=== PATIENT | male | born 1955 | race Caucasian/White ===

== ENCOUNTER 2020-05-19 23:43 | Emergency (ER) | payer MEDICARE, OTHER, SELFPAY ==
[~2020-05-19] VITALS: Ht 175.3 cm; Wt 83.7 kg
[2020-05-20 00:52] LABS: BASO % 0.3 % (0.0-1.0); EOS # 0.1 10^3/uL (0.0-0.5); EOS % 0.9 % (0.0-3.0); HEMOGLOBIN 14.3 g/dl (13.5-17.5); LYMPH % 12.8 % (24.0-44.0); MEAN CORPUSCULAR HEMOGLOBIN 32.4 pg (27.0-33.0); MEAN CORPUSCULAR HGB CONC 34.9 g/dl (32.0-36.5); MONO # 0.7 10^3/uL (0.0-0.8); MONO % 8.9 % (0.0-5.0); PLATELET COUNT, AUTOMATED 212 10^3/uL (150-450); RED BLOOD COUNT 4.41 10^6/uL (4.30-6.10); WHITE BLOOD COUNT 7.7 10^3/uL (4.0-10.0)
[2020-05-20 01:22] LABS: BLOOD UREA NITROGEN 15 MG/DL (7-18); CALCIUM LEVEL 8.6 MG/DL (8.8-10.2); CARBON DIOXIDE LEVEL 26 MEQ/L (21-32); CHLORIDE LEVEL 106 MEQ/L (98-107); CREATININE FOR GFR 0.86 MG/DL (0.70-1.30); GLOMERULAR FILTRATION RATE > 60.0 (>49); GLUCOSE, FASTING 121 MG/DL (70-100); SODIUM LEVEL 138 MEQ/L (136-145)
[2020-05-20] MEDS ORDERED: ISOVUE-370 76% 100ML VIAL As Ordered ONE (01:34)
--- NOTE | 2020-05-20 02:38 | REPVR ---
PROCEDURE INFORMATION: Exam: CT Neck With Contrast Exam date and time: 05/20/2020 1:29 AM Age: 65 years old Clinical indication: Other: Hemoptysis; Additional info: Hemoptysis, HX nhl with radiation TECHNIQUE: Imaging protocol: Computed tomography images of the neck with intravenous contrast. Radiation optimization: All CT scans at this facility use at least one of these dose optimization techniques: automated exposure control; mA and/or kV adjustment per patient size (includes targeted exams where dose is matched to clinical indication); or iterative reconstruction. Contrast material: ISO; Contrast volume: 75 ml; Contrast route: INTRAVENOUS (IV); COMPARISON: No relevant prior studies available. FINDINGS: Nasopharynx: Unremarkable. Oropharynx: Unremarkable. No significant tonsillar enlargement. Hypopharynx: Unremarkable. Larynx: Unremarkable. Normal epiglottis. Retropharyngeal space: Unremarkable. Submandibular/Parotid glands: Normal. Glands are normal in size. Thyroid: Couple hypoattenuating subcentimeter in right thyroid lobe foci. Lymph nodes: Unremarkable. No lymphadenopathy. Trachea: Visualized trachea is unremarkable. Lungs: Left upper lobe patchy ground-glass and consolidative airspace disease. Infection, neoplasm, or post treatment change from radiation. Bones/joints: Unremarkable. No acute fracture. Soft tissues: Unremarkable. No significant soft tissue swelling. IMPRESSION: Left upper lobe patchy ground-glass and consolidative airspace disease. Infection, neoplasm, or post treatment change from radiation. Electronically signed by: Kirk Brandon On 05/20/2020 02:37:51 AM
--- NOTE | 2020-05-20 03:15 | REPVR ---
PROCEDURE INFORMATION: Exam: CT Chest Without Contrast Exam date and time: 05/20/2020 2:46 AM Age: 65 years old Clinical indication: Other: Hemoptysis; Additional info: Roberto mass vs post-radiation TECHNIQUE: Imaging protocol: Computed tomography of the chest without contrast. 3D rendering (Not supervised by radiologist): MIP and/or 3D reconstructed images were created by the technologist. Radiation optimization: All CT scans at this facility use at least one of these dose optimization techniques: automated exposure control; mA and/or kV adjustment per patient size (includes targeted exams where dose is matched to clinical indication); or iterative reconstruction. COMPARISON: No relevant prior studies available. FINDINGS: Lungs: Diffuse patchy ground-glass opacities throughout the left lung but greatest in the left upper lobe with areas of consolidation. Pleural space: Unremarkable. No pneumothorax. No pleural effusion. Heart: Unremarkable. No cardiomegaly. No pericardial effusion. Aorta: Unremarkable. No aortic aneurysm. Lymph nodes: Vague soft tissue and calcifications within the anterior upper mediastinum, likely scar adenopathy from previous lymphoma and treatment. Intraperitoneal space: Appearance can be from a combination of hemorrhage, infection, and or edema and treatment change. Not specific. Bones/joints: Unremarkable. No acute fracture. Soft tissues: Unremarkable. IMPRESSION: 1. Diffuse patchy ground-glass opacities throughout the left lung but greatest in the left upper lobe with areas of consolidation. Appearance can be from a combination of hemorrhage, infection, and or edema and treatment change. Not specific. 2. Vague soft tissue and calcifications within the anterior upper mediastinum, likely scar adenopathy from previous lymphoma and treatment. Electronically signed by: Kirk Brandon On 05/20/2020 03:14:47 AM
[2020-05-20 08:55] VITALS: BP 141/84
--- NOTE | 2020-05-21 14:59 | ED PDOC ---
Post-Departure Follow-Up certified letter sent to pt re formalr ead of ct chest. needs monag Celia Son MD May 21, 2020 14:59
== END 2020-05-20 08:57 | disposition home or self-care (01) ==
LOC: M ED 23:43
DX: R04.2 Hemoptysis (principal); F17.210 Nicotine dependence, cigarettes, uncomplicated
CPT/HCPCS: 36415; 70491; 71250; 80048; 85025; 99284; Q9967

== ENCOUNTER → 2020-06-09 | Outpatient (REF) | payer MEDICARE ==
[2020-06-09 18:16] LABS: BLOOD UREA NITROGEN 15 MG/DL (7-18)
[2020-06-09 18:17] LABS: GLOMERULAR FILTRATION RATE > 60.0 (>49)
== END ==
LOC: M LAB REF 16:52
PROVIDERS: ATTEND Internal Medicine Pulmonary Disease
DX: R91.8 Other nonspecific abnormal finding of lung field (principal)

== ENCOUNTER → 2020-06-30 | Outpatient (CLI) | payer MEDICARE, OTHER ==
[~2020-06-30] MED LIST: ISOVUE-370 76% 100ML VIAL As Ordered ONE
--- NOTE | 2020-06-30 08:36 | REP ---
INDICATION: HEMOPTHESIS hemoptysis. COMPARISON: Noncontrast CT study May 20, 2020.. TECHNIQUE: Contrast dose: 75 ML of Isovue [address] technique: Helical scanning is acquired and overlapping 1.5 mm and contiguous 3 mm axial images are reformatted. In addition, maximum intensity projection and multiplanar re-formation images are generated in sagittal and coronal imaging projections. FINDINGS: There is good opacification of the pulmonary arterial tree and there is no CT evidence to suggest pulmonary embolism. No pleural or pericardial effusion is seen. Vascular calcification is noted but no evidence of aneurysm or dissection in the thoracic aorta. Calcific markie residuals are seen again in the anterior mediastinum. There is a small cyst in the upper pole left kidney. Adrenal glands are normal. The visualized upper abdominal structures are otherwise unremarkable. There is a tiny hepatic cyst. The infiltrated ground-glass opacity and consolidation previously noted in the left upper lobe and left lower lobe has largely resolved. There is some residual haziness in the left upper lobe peripherally. This may be fibro atelectatic change. It has a somewhat linear arrangement. There is a 3 mm noncalcified pulmonary nodule in the left upper lobe anteriorly visualized on image number 44 of 100 and series 402 of today's study. No other pulmonary nodule or mass lesion is seen. No new infiltrate is observed. Right hemidiaphragm remains elevated. Bone window settings show no bony destructive2 lesion. There is a 12 mm left hilar lymph node visible. A small 8 mm lymph node is visible in the right hilus. No definite adenopathy is seen. IMPRESSION: No CT evidence of pulmonary embolus. The recently noted left upper and lower lobe parenchymal consolidation has resolved. There is a 3 mm nodule in the left upper lobe. Calcific nodule residuals are seen in the anterior mediastinum. <Electronically signed by José Miguel Reynaga > 06/30/20 [id number]
== END ==
LOC: M RAD 07:36
PROVIDERS: ATTEND Internal Medicine Pulmonary Disease
DX: R04.2 Hemoptysis (principal); N28.1 Cyst of kidney, acquired; K76.89 Other specified diseases of liver; R91.1 Solitary pulmonary nodule
CPT/HCPCS: 71275; Q9967

== ENCOUNTER 2024-10-28 09:40 | Day surgery (SDC) | payer MEDICARE ==
[~2024-10-28] VITALS: Ht 175.3 cm; Wt 78.5 kg
[~2024-10-28 09:40] MED LIST changes: +CETI-24 PO; +CHOL50TA8 PO; -ISOVUE-370 76% 100ML VIAL As Ordered ONE; +KRIL1CAP PO
[2024-10-28] MEDS ORDERED: propofoL 200 MG/20 ML VIAL As Ordered ONE (11:41)
[2024-10-28 12:14] VITALS: TEMP 97.3
[2024-10-28 12:33] VITALS: BP 128/68; O2SAT 99
== END 2024-10-28 12:34 | disposition home or self-care (01) ==
LOC: M OPP 09:40
PROVIDERS: ATTEND Internal Medicine Gastroenterology
DX: Z12.11 Encounter for screening for malignant neoplasm of colon (principal); R19.5 Other fecal abnormalities; D12.2 Benign neoplasm of ascending colon; D12.0 Benign neoplasm of cecum; K57.30 Diverticulosis of large intestine without perforation or abscess without bleeding; K64.0 First degree hemorrhoids; Z79.899 Other long term (current) drug therapy